=== PATIENT | female | born 1950 | race Caucasian/White ===

== ENCOUNTER 2024-12-08 13:23 | Emergency (ER) | payer MEDICARE, BC, SELFPAY ==
[2024-12-08 13:35] VITALS: BP 228/119; PULSE 79; RESP 18; TEMP 36.4; O2SAT 96; BMI 42.1
--- NOTE | 2024-12-08 13:49 | CRLHL7_ITS ---
For Patients: As a result of the Century Cures Act, medical imaging exams and procedure reports are released immediately into your electronic medical record. You may view this report before your referring provider. If you have questions, please contact your health care provider. INDICATION: Leg pain and swelling. TECHNIQUE: Ultrasound venous duplex lower right extremity. Compression venous exam was performed using rosa-scale, color Doppler, and spectral Doppler analysis. COMPARISON: None. FINDINGS: Deep veins: Sonographic imaging demonstrates the right common femoral, deep femoral, superficial femoral, popliteal, posterior tibial and the contralateral left common femoral veins to be fully compressible with normal color Doppler blood flow. Superficial veins: Greater saphenous vein is fully compressible. No popliteal cyst. IMPRESSION: No deep venous thrombosis in the right lower extremity. Dictated by Beny Gates MD @ 12/08/2024 3:04:05 PM (Electronically Signed)
--- NOTE | 2024-12-08 13:50 | ED.GENADULT ---
HPI - General Adult General Chief complaint: Extremity Pain/Injury, Lower Stated complaint: Pain in right leg, 1 week Time Seen by Provider: 12/08/24 13:30 History of Present Illness HPI narrative: This 74-year-old female comes in reporting pain in her right lower extremity in the lateral aspect of her calf. She states that this pain is been present for about a week and half. She does not report any recent injury event or strenuous activity to trigger this. She does not have any shortness of breath or chest pain. She does not report any previous history of blood clot. Related Data Previous Rx's ?Medication ?Instructions ?Recorded ketorolac 10 mg tablet 10 mg PO TID 5 days #15 tabs 12/08/24 Allergies Allergy/AdvReac Type Severity Reaction Status Date / Time No Known Drug Allergies Allergy Verified 12/08/24 13:34 Review of Systems Status of ROS: Reports: 10 or more systems reviewed and unremarkable except as noted in History and below Narrative: Constitutional: No fevers, no weight gain or loss. Eyes: No discharge. No vision changes. HENT: No congestion, no sore throat, no ear pain. Cardiovascular: No chest pain, no palpitations. Respiratory: No shortness of breath, no wheezes, no cough. Gastrointestinal: No abdominal pain, no vomiting, no diarrhea. Genitourinary: No dysuria, no hematuria. Musculoskeletal: Normal range of motion. Skin: No rashes, no pruritis. Neurological: No dizziness, weakness, sensory change, speech change. Endo/Heme/Allergies: No bruising or bleeding. No polydipsia. Pysch: no suicidality, no anxiety, no insomnia. All other systems reviewed and are negative. Exam Narrative: Exam Narrative: Constitutional: Well-developed, well-nourished, no acute distress. HEENT: Normocephalic, atraumatic. Neck: Normal range of motion. Nontender. Supple. Heart: Intact distal pulses. Lungs: No chest discomfort. No wheezes, rhonchi, or rales. Abdomen: Nontender. Back: Normal range of motion. Extremities: Normal range of motion. No injury. Pain is located in the lateral aspect of her right calf. No obvious swelling when comparing the right leg to the left leg. No pain in the upper legs. Skin: Intact. No rash. Warm. No erythema or pallor. Neurologic: No altered sensation. No weakness. Alert and oriented. Psychiatric: No suicidality. No anxiety or depression. No insomnia. Nursing notes and vitals signs are reviewed. Const: Vital Signs, click to edit/add: Vital Signs - 24 hr 12/08/24 13:35 Temperature 97.5 F L Pulse Rate [Pulse Oximeter] 79 Respiratory Rate 18 Blood Pressure [Ri ght Upper Arm] 228/119 H Pulse Oximetry 96 Course Vital Signs Vital signs: Initial Vital Signs Temperature 97.5 F L 12/08/24 13:35 Temperature Source Temporal Artery Scan 12/08/24 13:35 Pulse Rate 79 12/08/24 13:35 Respiratory Rate 18 12/08/24 13:35 Blood Pressure 228/119 H 12/08/24 13:35 Blood Pressure Mean 155 H 12/08/24 13:35 Pulse Oximetry 96 12/08/24 13:35 Vital Signs Temperature 97.5 F L 12/08/24 13:35 Pulse Rate 79 12/08/24 13:35 Respiratory Rate 18 12/08/24 13:35 Blood Pressure 228/119 H 12/08/24 13:35 Pulse Oximetry 96 12/08/24 13:35 Temperature 97.5 F L 12/08/24 13:35 Pulse Rate 79 12/08/24 13:35 Respiratory Rate 18 12/08/24 13:35 Blood Pressure 228/119 H 12/08/24 13:35 Pulse Oximetry 96 12/08/24 13:35 Medical Decision Making MDM Narrative Medical decision making narrative: This patient comes in with right lateral calf pain and is concerned that it might be a blood clot. She has not have any history of blood clot in the past. She does not report any injury event or strenuous activity to trigger these symptoms. An ultrasound of the right lower extremity is obtained and shows no sign of vascular disease. Most likely this patient's pain is musculoskeletal. I did provide a prescription for Toradol and recommended that she also use Tylenol as needed and directed. She can follow-up with orthopedic clinic if not improving. Discharge Plan Discharge Clinical Impression: Leg pain, right Patient Disposition: Home, Self-Care Condition: Stable Additional Instructions: Take medication as needed and directed. Activity as tolerated. Follow up with primary physician or orthopedic clinic if symptoms are persistent or worsening. Prescriptions: New ketorolac 10 mg tablet 10 mg PO TID 5 Days Qty: 15 0RF Follow Up/Referrals: Provider,Not a Local [Primary Care Provider, Family Practice] Stand Alone Forms: [facility] Info Instructions
== END 2024-12-08 15:00 | disposition home or self-care (01) ==
PROVIDERS: Emergency Provider Emergency Medicine Emergency Medical Services
DX: M79.661 Pain in right lower leg (principal)
CPT/HCPCS: 93971; 99283; 99284

== ENCOUNTER 2025-02-12 15:43 | Outpatient (CLI) | payer MEDICARE, BC, SELFPAY | END 2025-02-12 15:44 | disposition home or self-care (01) | PROVIDERS: PCP Family Medicine; Visit Provider Family Medicine | DX: I10 Essential (primary) hypertension (principal); E66.9 Obesity, unspecified; Z68.39 Body mass index [BMI] 39.0-39.9, adult; Z13.6 Encounter for screening for cardiovascular disorders; M79.604 Pain in right leg | CPT/HCPCS: 80053; 80061; 84443 ==